=== PATIENT | female | born 1990 | race Caucasian/White ===

== ENCOUNTER 2021-09-21 07:10 | Emergency (ER) | payer OTHER ==
[2021-09-21 07:22] VITALS: BP 113/78; PULSE 80; RESP 17; TEMP 98.4; BMI 19.3
[2021-09-21] MEDS ORDERED: morphine CARPU-JECT 2 MG/1 ML DISP.SYRIN IVPUSH ONE (08:12)
[2021-09-21] MEDS ORDERED: SODIUM CHLORIDE 0.9% 500 ML INFUS.BAG IV ONE (08:12)
[2021-09-21] MEDS ORDERED: ONDANSETRON 4 MG/2 ML VIAL IVPUSH ONE (08:12)
[2021-09-21] MEDS ORDERED: ONDANSETRON 4 MG/2 ML VIAL ONE (08:21)
[2021-09-21 10:01] LABS: BASO % 0.5 % (0-2.0); EOS % 1.8 % (0-4.5); HEMATOCRIT 38.2 % (32.4-45.2); HEMOGLOBIN 13.1 GM/dL (10.7-15.3); MCH 29.7 pg (25.7-33.7); MCHC 34.3 g/dl (32.0-36.0); MEAN CELL VOLUME 86.6 fl (80-96); MONO % 5.6 % (3.8-10.2); NEUT % 70.1 % (42.8-82.8); PLATELET COUNT 225 10^3/uL (134-434); RBC 4.41 M/mm3 (3.60-5.2); WHITE BLOOD COUNT 6.6 K/mm3 (4.0-10.0)
[2021-09-21 10:07] LABS: PH,URINE 6.5 (5.0-8.0); URINE APPEARANCE CLEAR; URINE BILIRUBIN NEGATIVE (NEGATIVE); URINE COLOR YELLOW; URINE GLUCOSE (UA) NEGATIVE (NEGATIVE); URINE KETONE NEGATIVE (NEGATIVE); URINE LEUK ESTERASE NEGATIVE (NEGATIVE); URINE NITRITE NEGATIVE (NEGATIVE); URINE PROTEIN NEGATIVE (NEGATIVE); URINE UROBILINOGEN 0.2 mg/dL (0.2-1.0)
[2021-09-21 10:09] LABS: HCG,QUALITATIVE URINE Negative
[2021-09-21 10:46] LABS: ALBUMIN 3.3 g/dl (3.4-5.0); BLOOD UREA NITROGEN 14.7 mg/dL (7-18)
[2021-09-21 10:49] LABS: CREATININE 0.7 mg/dL (0.55-1.3)
[2021-09-21 10:51] LABS: TOT PROT 6.9 g/dl (6.4-8.2)
[2021-09-21 10:53] LABS: CALCIUM 9.1 mg/dL (8.5-10.1)
== END 2021-09-21 14:25 | disposition home or self-care (01) ==
LOC: JER 07:10
PROC: 3E033NZ Introduction of Analgesics, Hypnotics, Sedatives into Peripheral Vein, Percutaneous Approach (ICD-10-PCS; principal; 2021-09-21)
PROC: 3E033GC Introduction of Other Therapeutic Substance into Peripheral Vein, Percutaneous Approach (ICD-10-PCS; 2021-09-21)
DX: R10.9 Unspecified abdominal pain (principal)
CPT/HCPCS: 36415; 74177-TC; 76705-TC; 80053; 81003; 83690; 84703; 85025; 87086; 87186; 99285-25; Q9967